=== PATIENT | male | born 1935 | race Caucasian/White ===

== ENCOUNTER 2020-11-11 14:21 | Emergency (ER) | payer MEDICARE, OTHER ==
[2020-11-11 14:31] VITALS: BP 166/66; PULSE 51
[2020-11-11] MEDS ORDERED: Sodium Chloride 0.9% 10 ML Syringe FLUSH PRN (15:19)
--- NOTE | 2020-11-11 15:23 | EDM.PDOC ---
ED HPI GENERAL MEDICAL PROBLEM - General Chief Complaint: Cardiovascular Problem Stated Complaint: ABNORMAL EKG Time Seen by Provider: 11/11/20 15:21 Source of Information: Reports: Patient History Limitations: Reports: No Limitations - History of Present Illness INITIAL COMMENTS - FREE TEXT/NARRATIVE: 84-year-old male presents to the ED in the company of his and daughter from [place]. He was seen by a provider this afternoon and identified to have an abnormal ECG which computer reading reported an acute myocardial infarction. Patient has no chest pain and primarily went to see the PA today because of some increased dependent edema of his lower extremities and persistent vertigo for the last 3 to 4 weeks. He has no history of known coronary artery disease or myocardial infarction. On the ECG sent by the provider at the clinic it reveals a right bundle branch block excuse the baseline upwards mimicking a posterior wall infarction. There is no evidence of myocardial infarction on examination. There is evidence of left ventricular hypertrophy pattern. He also presented with a sinus bradycardia of 40/min. Rate on presentation to the ED is sinus bradycardia in the 50s. Patient is known to have aortic valve insufficiency and mitral valve insufficiency which are considered mild and she he is followed by --receiving lead from [place] once yearly. He has been experiencing vertigo particularly when he gets up out of bed 2 or 3 days a week for the last month. This makes him walk and stagger like a drunk but he is not fallen down. Seems to be better after he gets up and mobile for the day. He is appreciated some swelling in his lower extremities around his socks particular noted at bedtime the last week to 10 days. He does get mildly short of breath on exertion. Onset: Gradual Duration: Day(s): (Vertigo symptoms off and on for the last month. Dependent edema lower extremities for the last 12 days or so.) Location: Reports: Upper Extremity, Right (Lord extremity edema both lower extremities around his socks at nighttime.), Lower Extremity, Left, Other (Vertigo symptoms 2 or 3 days a week when he gets up out of bed for the last month.) Quality: Reports: Other (Vertigo symptoms off and on for the last month.) Severity: Moderate Improves with: Reports: Other (Vertigo improves once he gets up and mobile for the day. Vertigo almost always occurs from getting up from the lying down position to the standing position or seated position.) Worsens with: Reports: Movement (Certain movements such as a quick look to the side may precipitate vertigo during the day. He states he does not look quickly to the side because his neck will not let him.) Context: Denies: Activity, Exercise, Lifting, Sick Contact, Trauma Associated Symptoms: Reports: Cough (Rare cough), Shortness of Breath, Other. 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 (see below) (Takes the occasional Advil.) - Related Data Allergies Allergy/AdvReac Type Severity Reaction Status Date / Time No Known Allergies Allergy Verified 11/11/20 14:31 Home Meds: Home Meds Levothyroxine [Synthroid] 62.5 mcg PO DAILY 09/08/14 [History] Past Medical History HEENT History: Reports: Allergic Rhinitis Cardiovascular History: Reports: Heart Murmur (Echocardiogram reveals mild aortic valve insufficiency and mild mitral valve insufficiency.), Hypertension, PVD, SOB on Exertion Endocrine/Metabolic History: Reports: Hypothyroidism (Patient is on levothyroxine supplement.) - Past Surgical History GI Surgical History: Reports: Appendectomy Neurological Surgical History: Reports: Thoracic Spine Musculoskeletal Surgical History: Reports: ORIF Social & Family History - Tobacco Use Tobacco Use Status *Q: Former Tobacco User Used Tobacco, but Quit: Yes Month/Year Tobacco Last Used: 03/1989 - Caffeine Use Caffeine Use: Reports: Coffee - Recreational Drug Use Recreational Drug Use: No - Living Situation & Occupation Living situation: Reports: Occupation: Employed (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 Lives on the outskirts of [place]) ED ROS GENERAL - Review of Systems Review Of Systems: See Below Constitutional: Reports: Fatigue, Decreased Appetite. Denies: Fever, Chills, Malaise, Weakness, Weight Loss HEENT: Reports: Glasses, Hearing Loss (For reading.), Vertigo ( He is hard of hearing but does not wear hearing aids.) Respiratory: Reports: Shortness of Breath ( To go symptoms particular the last month off and on particular getting up out of bed.), Cough. Denies: Wheezing, Pleuritic Chest Pain, Sputum, Hemoptysis (Nonproductive) Cardiovascular: Reports: Blood Pressure Problem, Dyspnea on Exertion, Edema (Both lower extremities particular around his socks.), Lightheadedness. Denies: Chest Pain, Claudication, Orthopnea (Chronic hypertension), Palpitations Endocrine: Reports: Fatigue GI/Abdominal: Reports: Constipation (Rare.). Denies: Nausea, Vomiting : Reports: Frequency, Other Musculoskeletal: Reports: Neck Pain, Shoulder Pain, Back Pain (Treated x2. Known BPH.), Joint Pain (Is in hips at times.) Skin: Reports: No Symptoms Neurological: Reports: Dizziness, Difficulty Walking. Denies: Confusion, Headache (Which is interpreted as vertigo.), Numbness, Tingling Psychiatric: Reports: No Symptoms (Sometimes due to knee pain and hip pain.) Hematologic/Lymphatic: Reports: No Symptoms Immunologic: Reports: No Symptoms ED EXAM, GENERAL - Physical Exam Exam: See Below Exam Limited By: No Limitations General Appearance: Alert, WD/WN, No Apparent Distress, Other (Temperature is 36.1 degrees. Heart rate is sinus bradycardia 51/min. Monitor shows sinus rhythm. Respiratory of 16 with O2 sats of 94 to 96% room air. BP mildly elevated 166/66. It subsequently came down to 140/62.) Eye Exam: Bilateral Eye: Normal Inspection (No blepharal pallor or scleral icterus.), Nystagmus (Mild nystagmus on right lateral gaze.), PERRL Ears: Normal TMs Throat/Mouth: Normal Inspection, Normal Lips, Normal Oropharynx, Other Head: Atraumatic (Uvula is in the midline.), Normocephalic Neck: Normal Inspection, Limited Range of Motion. No: Carotid Bruit, Lymphadenopathy (L) (Crepitus on lateral rotation.), Lymphadenopathy (R) Respiratory/Chest: No Respiratory Distress, No Accessory Muscle Use, Decreased Breath Sounds. No: Rales (Decreased air entry to the lower 25% lung maier bilaterally.), Rhonchi, Wheezing Cardiovascular: No Gallop, No Murmur, No Rub, Bradycardia (Sinus bradycardia). No: Normal Peripheral Pulses, No Edema Peripheral Pulses: 1+: Posterior Tibial (L), Posterior Tibial (R), Dorsalis Pedis (L), Dorsalis Pedis (R), 2+: Carotid (L), Carotid (R) GI/Abdominal: Normal Bowel Sounds, Soft, Non-Tender, No Organomegaly, No Mass, Pelvis Stable Back Exam: Decreased Range of Motion (Does have). 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 I disagree with the computer reading of acute myocardial infarction. There is no evidence of lateral wall infarct or posterior wall infarct. Skewed baseline and tall R waves in V1 V2 V3 is secondary to right bundle branch block pattern. Course - Vital Signs Last Recorded V/S: Last Vital Signs Temp 36.1 C 11/11/20 14:28 Pulse 51 L 11/11/20 14:28 Resp 16 11/11/20 14:28 BP 166/66 H 11/11/20 14:28 Pulse Ox 94 L 11/11/20 14:28 - Orders/Labs/Meds Orders: Active Orders 24 hr Category Date Time Status Peripheral IV Care [RC] . DIRECTED Care 11/11/20 15:19 Active Sodium Chloride 0.9% [Saline Flush] Med 11/11/20 15:19 Active 10 ml FLUSH ASDIRECTED PRN Peripheral IV Insertion Adult [OM.PC] Stat Oth 11/11/20 15:19 Ordered Medication Orders Sodium Chloride (Sodium Chloride 0.9% 10 Ml Syringe) 10 ml FLUSH ASDIRECTED PRN PRN Reason: Keep Vein Open Last Admin: 11/11/20 15:23 Dose: 10 ml Documented by: MADIE Labs: Laboratory Tests 11/11/20 11/11/20 11/11/20 Range/Units 14:35 14:35 14:35 WBC 5.76 (4.23-9.07) K/mm3 RBC 5.28 (4.63-6.08) M/mm3 Hgb 15.4 (13.7-17.5) gm/dl Hct 44.3 (40.1-51.0) % MCV 83.9 (79.0-92.2) fl MCH 29.2 (25.7-32.2) pg MCHC 34.8 (32.2-35.5) g/dl RDW Std Deviation 39.9 (35.1-43.9) fL Plt Count 270 (163-337) K/mm3 MPV 10.2 (9.4-12.3) fl Neut % (Auto) 58.0 (34.0-67.9) % Lymph % (Auto) 24.8 (21.8-53.1) % [place] % (Auto) 13.9 H (5.3-12.2) % Eos % (Auto) 2.8 (0.8-7.0) Baso % (Auto) 0.3 (0.1-1.2) % Neut # (Auto) 3.34 (1.78-5.38) K/mm3 Lymph # (Auto) 1.43 (1.32-3.57) K/mm3 [place] # (Auto) 0.80 (0.30-0.82) K/mm3 Eos # (Auto) 0.16 (0.04-0.54) K/mm3 Baso # (Auto) 0.02 (0.01-0.08) K/mm3 PT 11.0 (9.7-12.0) SECONDS INR 1.03 APTT 28.6 (21.7-31.4) SECONDS Sodium 143 (136-145) mEq/L Potassium 4.7 (3.5-5.1) mEq/L Chloride 108 H (98-107) mEq/L Carbon Dioxide 27 (21-32) mEq/L Anion Gap 12.7 (5-15) BUN 20 H (7-18) mg/dL Creatinine 0.9 (0.7-1.3) mg/dL Est Cr Clr Drug Dosing 64.21 mL/min Estimated GFR (MDRD) > 60 (>60) mL/min BUN/Creatinine Ratio 22.2 H (14-18) Glucose 131 H (70-99) mg/dL Calcium 8.7 (8.5-10.1) mg/dL Magnesium 2.1 (1.8-2.4) mg/dL Total Bilirubin 0.6 (0.2-1.0) mg/dL AST 29 (15-37) U/L ALT 26 (16-63) U/L Alkaline Phosphatase 82 (46-116) U/L CK-MB (CK-2) 4.5 H (0-3.6) ng/ml Troponin I < 0.017 (0.00-0.056) ng/mL C-Reactive Protein <0.2 (<1.0) mg/dL NT-Pro-B Natriuret Pep (0-450) pg/mL Total Protein 6.8 (6.4-8.2) g/dl Albumin 3.5 (3.4-5.0) g/dl Globulin 3.3 gm/dL Albumin/Globulin Ratio 1.1 (1-2) TSH 3rd Generation 2.437 (0.358-3.74) uIU/mL 11/11/20 Range/Units 14:35 WBC (4.23-9.07) K/mm3 RBC (4.63-6.08) M/mm3 Hgb (13.7-17.5) gm/dl Hct (40.1-51.0) % MCV (79.0-92.2) fl MCH (25.7-32.2) pg MCHC (32.2-35.5) g/dl RDW Std Deviation (35.1-43.9) fL Plt Count (163-337) K/mm3 MPV (9.4-12.3) fl Neut % (Auto) (34.0-67.9) % Lymph % (Auto) (21.8-53.1) % [place] % (Auto) (5.3-12.2) % Eos % (Auto) (0.8-7.0) Baso % (Auto) (0.1-1.2) % Neut # (Auto) (1.78-5.38) K/mm3 Lymph # (Auto) (1.32-3.57) K/mm3 [place] # (Auto) (0.30-0.82) K/mm3 Eos # (Auto) (0.04-0.54) K/mm3 Baso # (Auto) (0.01-0.08) K/mm3 PT (9.7-12.0) SECONDS INR APTT (21.7-31.4) SECONDS Sodium (136-145) mEq/L Potassium (3.5-5.1) mEq/L Chloride (98-107) mEq/L Carbon Dioxide (21-32) mEq/L Anion Gap (5-15) BUN (7-18) mg/dL Creatinine (0.7-1.3) mg/dL Est Cr Clr Drug Dosing mL/min Estimated GFR (MDRD) (>60) mL/min BUN/Creatinine Ratio (14-18) Glucose (70-99) mg/dL Calcium (8.5-10.1) mg/dL Magnesium (1.8-2.4) mg/dL Total Bilirubin (0.2-1.0) mg/dL AST (15-37) U/L ALT (16-63) U/L Alkaline Phosphatase (46-116) U/L CK-MB (CK-2) (0-3.6) ng/ml Troponin I (0.00-0.056) ng/mL C-Reactive Protein (<1.0) mg/dL NT-Pro-B Natriuret Pep 81 (0-450) pg/mL Total Protein (6.4-8.2) g/dl Albumin (3.4-5.0) g/dl Globulin gm/dL Albumin/Globulin Ratio (1-2) TSH 3rd Generation (0.358-3.74) uIU/mL Meds: Medications Generic Name Dose Route Start Last Admin Trade Name Freq PRN Reason Stop Dose Admin Sodium Chloride 10 ml 11/11/20 15:19 11/11/20 15:23 Sodium Chloride 0.9% 10 Ml Syringe FLUSH 10 ml ASDIRECTED PRN Administration Keep Vein Open - Radiology Interpretation Free Text/Narrative:: 84-year-old male presents to the ED at the request of his primary care provider in [place]. He presented there for clinic visit for assessment of dizzy spells upon getting up from bed in the morning making him walk offkilter a vertigo symptoms. Also was concerned about increased dependent edema lower extremities off and on for the last 12 days. Apparently an ECG was ordered as part of his work-up and the ECG printout suggest acute myocardial infarction. He also has a sinus bradycardia at 40/min. Due to these changes he was referred down here to our emergency department. ECG review shows that he has a right bundle branch block which skews the ST segments and R wave upwards in leads V1, V2, V3 mimicking posterior wall myocardial infarction. There is no evidence of myocardial infarction on my reassessment. Patient does have a sinus bradycardia left ventricular perjury pattern. On exam he does clinically show some left labyrinth dysfunction with sustained nystagmus to the right side on lateral gaze. Patient has no chest pain and is in no distress. Plan routine labs to be performed including thyroid function. Portable chest x-ray to be done. - Re-Assessments/Exams Free Text/Narrative Re-Assessment/Exam: 11/11/20 16:00: Portable chest x-ray reveals heart size to be within normal limits. Tortuous thoracic aorta is appreciated. Degenerative changes noted within the left shoulder with findings of chronic rotator cuff tear. Minimal atelectasis within the lateral left costophrenic angle is seen. Lungs are clear with no acute parenchymal changes. No acute pulmonary vascular congestion is seen. 11/11/20 16:21 White count is normal at 5.76. Differential shows 58% neutrophils on the auto differential. Hemoglobin is 15.4 with hematocrit of 44.3. Platelet count is 270,000. PT is 11.0 with an INR of 1.03. PTT is 28.6. Sodium 143 with a potassium of 4.7. Chloride 108 with a bicarb of 27. Anion gap is 12.7. BUN is 20 with a creatinine of 0.9. GFR is greater than 60. Glucose is 131. Calcium is 8.7. Magnesium is 2.1. Liver function is normal. CK-MB fraction is 4.5. Troponin I is less than 0.017. C-reactive protein less than 0.2. BNP is 81. Total protein 6.8 with an albumin fraction of 3.5. TSH is normal at 2.437. 11/11/20 16:26: Patient and his and daughter were advised of the findings from today's investigations. No serious abnormalities were appreciated. Is receiving adequate thyroid hormone replacement at this time. No signs of any heart related illness at this time. Blood pressure tends to run a bit high systolically. May benefit from a small dose of JACK or ARB inhibitor such as valsartan 160 mg once daily. Is suffering from benign positional vertigo. Advised to diamond picker some Antivert which is [id number] 12.5 mg tablet can be taken every 8 hours if needed for relief of vertigo. It sounds like vertigo is most problematic when first getting up from the lying down or seated position. Departure - Departure Time of Disposition: 16:37 Disposition: Home, Self-Care 01 Reason for Transfer *Q: Other Condition: Fair Clinical Impression: Benign positional vertigo Qualifiers: Laterality: left Qualified Code(s): H81.12 - Benign paroxysmal vertigo, left ear Referrals: Haley Woods NP [Primary Care Provider] - Forms: ED Department Discharge Additional Instructions: Evaluation in the emergency room today at the request of your primary care provider in [place]. This was done due to concern over ECG performed at that facility. Computer reading interpreted as an acute heart attack. This proved to be a false. The ECG reveals a right bundle branch block which skews the ECG in several leads making it look much worse than it is. Your heart rate tends to run slow in the 50s primarily which is called sinus bradycardia. You are no medications that cause this. You are experiencing benign positional vertigo which is an off-balance sensation like you have been drinking too much first thing in the morning upon getting up from the lying down to the seated or standing position. This may well improve over time. However the same nerve that controls her hearing controls her balance and this nerve tends to degenerate over time as we age. You may purchase some Antivert which is [id number] medication 12.5 mg and may take 1 every 8 hours when needed for vertigo symptoms or a bad day. It does cause some degree of fatigue however. Checkup in the emergency room today revealed no evidence of any heart failure or heart attack. Chest x-ray proved to be within normal limits showing some age- appropriate emphysema changes in your lungs. Heart size is normal. There was no signs of heart failure. Your thyroid gland function is normal and you are on an appropriate dose of thyroid replacement therapy at this time. The mild amount of swelling in your lower legs is nothing to worry about. It will pop up from time to time particularly with hot weather or if you have been sitting longer than normal. At this time no change in medication is advised. Sepsis Event Note (ED) - Evaluation Sepsis Screening Result: No Definite Risk - Focused Exam Vital Signs: Vital Signs Temp Pulse Resp BP Pulse Ox 11/11/20 14:28 36.1 C 51 L 16 166/66 H 94 L - My Orders Last 24 Hours: My Active Orders 11/11/20 15:19 Peripheral IV Care [RC] . DIRECTED Sodium Chloride 0.9% [Saline Flush] 10 ml FLUSH ASDIRECTED PRN Peripheral IV Insertion Adult [OM.PC] Stat - Assessment/Plan Last 24 Hours: My Active Orders 11/11/20 15:19 Peripheral IV Care [RC] . DIRECTED Sodium Chloride 0.9% [Saline Flush] 10 ml FLUSH ASDIRECTED PRN Peripheral IV Insertion Adult [OM.PC] Stat
--- NOTE | 2020-11-11 16:00 | CR ---
Chest: Portable view of the chest was obtained. Comparison: Prior chest x-ray of 08/17/15. Heart size is normal. Tortuous thoracic aorta is seen. Degenerative change is noted within the left shoulder with findings of chronic rotator cuff tear. Minimal atelectasis within the lateral left costophrenic angle is seen. Lungs are clear with no acute parenchymal change. No acute pulmonary vascular congestion is seen. Impression: 1. Findings as noted above. 2. Nothing acute is appreciated on portable chest x-ray. Diagnostic code #2
== END 2020-11-11 16:50 | disposition home or self-care (01) ==
LOC: JD.ED 14:21
DX: H81.12 Benign paroxysmal vertigo, left ear (principal); E03.9 Hypothyroidism, unspecified; I10 Essential (primary) hypertension; Z79.899 Other long term (current) drug therapy; Z87.891 Personal history of nicotine dependence; R06.02 Shortness of breath
CPT/HCPCS: 36415; 71045; 71045-26; 80053; 82553; 83735; 83880; 84443; 84484; 85025; 85610; 85730; 86140; 93010; 99283; 99285-25